=== PATIENT | female | born 1955 | race Caucasian/White ===

== ENCOUNTER 2017-09-18 19:30 | Emergency (ER) | payer OTHER ==
[~2017-09-18] VITALS: Ht 144.8 cm; Wt 80.9 kg
[~2017-09-18 19:30] MED LIST: ALLO100T21 PO; ALPRAZOLAM PO; ASPI81CT95 PO; AZIT250T3 PO; BECL0.089 INH; CLON0.1T79; DILT60TA94; FLONAS NS; FOLI1TAB19; LACO100T PO; LEVO0.0512 PO; OMEP20EC6; ORE25 PO; PILO5TAB PO; PRED20TA5 PO; PREDNISONE PO; PRIM50TA13 PO; SULF500T6 PO; TEMA30CA23 PO
[2017-09-18 19:38] VITALS: BP 153/73
--- NOTE | 2017-09-18 19:46 | NUR ---
PT. AMBULATES TO ER BED 8
[2017-09-18] MEDS ORDERED: NALOXONE 0.4 MG/ML VIAL ONE (20:30)
--- NOTE | 2017-09-18 20:32 | NUR ---
61Y/F PT. PRESENTS TO ED WITH C/O COUGH WITH LT. NECK PAIN X 1 DAY. PT. HX. HTN, ATHRITIS, OSTEOMYELITIS. AAO X4, AMBULATORY WITH MIKE. RESPIRATIONS ROOM AIR, EVEN AND UNALBORED. C/O COUGH, BL CLEAR. SKIN WARM AND DRY. VSS, C/O PAIN 08/16. VSS, ER MADE AWARE OF PT. STATUS.
[2017-09-18] MEDS ORDERED: ALBUTEROL 0.083% 2.5 MG/3 ML NEBU INH ONE (22:20)
[2017-09-18] MEDS ORDERED: methylPREDNISolone SS 125 MG/2 ML VIAL IVP ONE (22:20)
[2017-09-18] MEDS ORDERED: LORazepam 2 MG/ML VIAL IVP ONE (22:20)
[2017-09-18] MEDS ORDERED: MORPHINE SULFATE 4 MG/ML SYR IVP ONE (22:20)
--- NOTE | 2017-09-18 22:48 | NUR ---
GAVE PATIENT 10MG ALBUTEROL
--- NOTE | 2017-09-18 23:44 | NUR ---
Patient appears to be resting comfortably in bed. Vital Signs within normal limits. Respirations even and unlabored.
--- NOTE | 2017-09-19 | NUR ---
Patient appears to be resting comfortably in bed. Vital Signs within normal limits. Respirations even and unlabored.
--- NOTE | 2017-09-19 01:15 | NUR ---
Patient discharged with v/s stable. Written and verbal after care instructions given and explained. Patient alert, oriented and verbalized understanding of instructions. Ambulatory with steady gait. All questions addressed prior to discharge. ID band removed. Patient advised to follow up with PMD. Rx of ATIVAN 1 MG given. Patient educated on indication of medication including possible reaction and side effects. Opportunity to ask questions provided and answered. Addendum: 09/19/17 at 0128 by [facility] NORCO 10/325 MG, PREDNISONE 50 MG, AZITHROMYCIN 250 MG PRESCRIBTION GIVEN
[2017-09-19 01:20] VITALS: BP 120/67
== END 2017-09-19 01:15 | disposition home or self-care (01) ==
LOC: MED 19:30
DX: M54.2 Cervicalgia (principal); J44.1 Chronic obstructive pulmonary disease with (acute) exacerbation; M62.838 Other muscle spasm; J45.909 Unspecified asthma, uncomplicated; I10 Essential (primary) hypertension; E03.9 Hypothyroidism, unspecified; M06.9 Rheumatoid arthritis, unspecified; Z88.1 Allergy status to other antibiotic agents; Z88.8 Allergy status to other drugs, medicaments and biological substances; Z79.899 Other long term (current) drug therapy; Z79.82 Long term (current) use of aspirin
CPT/HCPCS: 71010; 81002; 81025; 94640; 96374; 96375; 99284; J2060; J2270; J2930; J7613; Q0092; J2310

== ENCOUNTER 2018-01-20 23:33 | Emergency (ER) | payer OTHER ==
[~2018-01-20] VITALS: Ht 144.8 cm; Wt 75.7 kg
[2018-01-20 23:35] VITALS: BP 137/81
--- NOTE | 2018-01-20 23:47 | NUR ---
PT AMBULATED TO CHAIR A
--- NOTE | 2018-01-20 23:50 | NUR ---
PATIENT IS A 62 Y/O FEMALE WHO PRESENTS TO THE ED C/O MED REFILL. PT STATES, "MY BODY HURTS AND I RAN OUT OF MY MEDICATION FOR SJOGRENS." PT REPORTS 10/10 ACHING BODY PAIN THAT DOES NOT RADIATE, REPORTS GOUT FLARE UP. PT DENIES CP, SOB, REPORTS NAUSEA DENIES VOMITING/DIARRHEA. PT AAOX4, RR EVEN/UNLABORED. PT REPOSITIONED FOR COMFORT, PT SITTING IN CHAIR. ER MD DR. BOND NOTIFIED. WILL CONTINUE TO MONITOR. Addendum: 01/21/18 at 0003 by MEDDCV PATIENT IS A 62 Y/O FEMALE WHO PRESENTS TO THE ED C/O MED REFILL. PT STATES, "MY BODY HURTS AND I RAN OUT OF MY MEDICATION FOR SJOGRENS." PT REPORTS 10/10 ACHING BODY PAIN THAT DOES NOT RADIATE, REPORTS GOUT FLARE UP. NON-PRODUCTIVE COUGH NOTED. PT DENIES CP, SOB, REPORTS NAUSEA DENIES VOMITING/DIARRHEA. PT AAOX4, RR EVEN/UNLABORED. PT REPOSITIONED FOR COMFORT, PT SITTING IN CHAIR. ER MD DR. BOND NOTIFIED. WILL CONTINUE TO MONITOR.
--- NOTE | 2018-01-21 00:03 | NUR ---
Dr. Welch evaluating patient.
[2018-01-21 00:24] VITALS: BP 140/83
--- NOTE | 2018-01-21 00:24 | NUR ---
Patient discharged with v/s stable. Written and verbal after care instructions given and explained. Patient alert, oriented and verbalized understanding of instructions. Ambulatory with steady gait. All questions addressed prior to discharge. ID band removed. Patient advised to follow up with PMD. Rx of AZITHROMYCIN 250MG AND CEVIMELINE 30MG given. Patient educated on indication of medication including possible reaction and side effects. Opportunity to ask questions provided and answered.
== END 2018-01-21 00:24 | disposition home or self-care (01) ==
LOC: MED 23:33
DX: Z76.0 Encounter for issue of repeat prescription (principal); J06.9 Acute upper respiratory infection, unspecified; J44.9 Chronic obstructive pulmonary disease, unspecified; I10 Essential (primary) hypertension; E03.9 Hypothyroidism, unspecified; Z79.899 Other long term (current) drug therapy; Z79.82 Long term (current) use of aspirin; Z88.1 Allergy status to other antibiotic agents; Z88.8 Allergy status to other drugs, medicaments and biological substances
CPT/HCPCS: 99283

== ENCOUNTER 2018-02-08 23:13 | Inpatient (IN) | payer OTHER ==
[~2018-02-08] VITALS: Ht 142.2 cm; Wt 75.7 kg
[2018-02-08 23:20] VITALS: BP 113/69
--- NOTE | 2018-02-08 23:26 | NUR ---
Pt presents to ED after fall x3 days ago. Pt's ocular care technician states she likely threw up in her sleep last night on 02/07/18. Pt c/o severe 10/10 bilateral knee pain. Pt Has 2cm crescent laceration with green drainage ro left knee. Left foot is red, warm, and has 2-3+ Pitting edema. No edema present to right foot. Pt A&Ox4. Has difficulty ambulating. VSS. ER MD aware. Continue to monitor.
[2018-02-08] MEDS ORDERED: MORPHINE SULFATE 4 MG/ML SYR IVP ONE (23:55)
[2018-02-09 00:39] LABS: BASOPHILS % (AUTO) 0.8 % (0.0-2.0); EOSINOPHILS # (AUTO) 0.1 K/uL (0-0.4); EOSINOPHILS % (AUTO) 1.2 % (0.0-4.0); HEMATOCRIT 28.6 % (36-48); HEMOGLOBIN 9.2 g/dL (12.0-16.0); LYMPHOCYTES # (AUTO) 1.6 K/uL (2.5-16.5); LYMPHOCYTES % (AUTO) 29.2 % (20.5-51.1); MEAN CORPUSCULAR HEMOGLOBIN 25 pg (27-31); MEAN CORPUSCULAR HGB CONC 32 g/dL (33-37); MEAN CORPUSCULAR VOLUME 75.9 fL (80-94); MONOCYTES # (AUTO) 0.6 K/uL (0.8-1.0); NEUTROPHILS # (AUTO) 3.2 K/uL (1.8-7.7); NEUTROPHILS % (AUTO) 58.8 % (42.2-75.2); PLATELET COUNT (AUTO) 295 K/uL (140-450); RED BLOOD CELL COUNT(AUTO) 3.76 MIL/uL (4.20-5.40); RED CELL DISTRIBUTION WIDTH 15.7 % (11.6-13.7); WHITE BLOOD COUNT (AUTO) 5.5 K/uL (4.8-10.8)
--- NOTE | 2018-02-09 00:45 | NUR ---
PT AT CT AT THIS TIME, MORPHINE 4MG UNAVAILABLE AT [facility], TOWER TRUCK DRIVER CONTACTED BUT UNAVAILABLE AT THIS TIME. OVERRIDE MED MORPHINE 5MG, WILL ADMINISTER MORPHINE 4MG IVP ORDERED WHEN PT IS BACK FROM CT.
[2018-02-09] MEDS ORDERED: MORPHINE SULFATE 5 MG/ML VIAL ONE (00:51)
[2018-02-09 00:56] LABS: ALBUMIN 3.1 g/dL (3.4-5.0); ANION GAP 7.9 (8-16); CARBON DIOXIDE 33.6 mmol/L (21-32); CREATININE 1.1 mg/dL (0.6-1.3); TOTAL BILIRUBIN 0.3 mg/dL (0.0-1.0)
[2018-02-09 01:03] LABS: CREATINE KINASE MB 0.9 ng/mL (0-3.6)
[2018-02-09 01:04] LABS: POTASSIUM 2.5 mmol/L (3.5-5.1)
--- NOTE | 2018-02-09 01:20 | NUR ---
IV 22 GA RT A/C DONE. IVP MEDS GIVEN-NADR AT THIS TIME
--- NOTE | 2018-02-09 02:15 | NUR ---
PT RESTING IN BED, PT REPORTS RELIEF OF PAIN AT THIS TIME AFTER MORPHINE IVP. RR EVEN AND UNLABORED. REMINDED DR JAY ABOUT ABNORMAL LABS K 2.5, D-DIMER 1080 AT THIS TIME, MD AWARE, ORDERS PENDING.
[2018-02-09] MEDS ORDERED: POTASSIUM CHLORIDE 10 MEQ TABER PO ONE (02:20)
[2018-02-09] MEDS ORDERED: ACETAMINOPHEN 325 MG TAB PO PRN (02:30)
[2018-02-09] MEDS ORDERED: ONDANSETRON 4 MG/2 ML VIAL IVP PRN (02:30)
[2018-02-09] MEDS ORDERED: HYDROcodone/APAP 5/325 MG 1 TAB TAB PO PRN ×3 (02:30→03:00)
[2018-02-09] MEDS: NACL 0.9% 1,000 ML IV SCH ×3 (02:55→22:27)
--- NOTE | 2018-02-09 03:00 | NUR ---
Patient will be admitted to care of [facility]. Admited to TELE. Will go to room 111B. Belongings list completed. Report to BALTAZAR LICONA AT BEDSIDE.
--- NOTE | 2018-02-09 03:05 | NUR ---
RECEIVED REPORT FROM CYBER DEFENSE INCIDENT RESPONDER MABEL, PT IS A/OX4, ON ROOM AIR. PT HAS 20G IV TO LEFT AC. PT AMBULATES WITH CANE, PT IS S/P FALL 3 DAYS AGO AND HAS A HEALING LACERATION TO LEFT KNEE. UPDATED BOARD. DISCUSSED PLAN OF CARE WITH PT, PT VERBALIZED UNDERSTANDING. OBTAINED MRSA SWAB AND SENT TO LAB. VITAL SIGNS WITHIN NORMAL LIMITS. PT IN STABLE CONDITION, NO SIGNS OF DISTRESS NOTED. BED IN LOWEST POSITION, CALL LIGHT WITHIN REACH. WILL CONTINUE TO MONITOR.
[2018-02-09 04:09] VITALS: BP 117/69
--- NOTE | 2018-02-09 05:07 | NUR ---
RECEIVED PHARMACY CALL TO VERIFY MEDICATIONS. PHARMACIST ASKED ME TO CALL DR AND VERIFY DOSES FOR LEVOTHYROXINE AND ASPIRIN, AND TO FIND OUT IF DR WANTS TO D/C ACETAMINOPHEN AND NORCO BECAUSE PT IS ALLERGIC, OR IF SHE WANTS TO ADD BENADRYL. PAGED DR. HERNANDEZ (SURVEY INTERVIEWER).
--- NOTE | 2018-02-09 07:02 | NUR ---
DR HERNANDEZ HAS NOT CALLED BACK. TRIED PAGING AGAIN AND GOT DISCONNECTED. WILL ENDORSE.
--- NOTE | 2018-02-09 07:40 | NUR ---
RECEIVED REPORT FROM MASTER ELECTRICIAN NURSE. PT IS RESTING IN BED, SEMI FOWLERS POSITION, AAOX4, AMBULATES WITH ASSIST, PT HAS A LEFT KNEE SKIN TEAR, IV IS ON THE RIGHT AC, PATENT, INTACT, FLUSHING WELL, NO S/S OF RESPIRATORY DISTRESS OR DISCOMFORT NOTED, SAFETY/FALL PRECAUTIONS ARE IN PLACE, DISCUSSED PLAN OF CARE WITH PT, PT VERBALIZED UNDERSTANDING, CALL LIGHT IS WITHIN REACH, WILL CONTINUE TO MONITOR.
--- NOTE | 2018-02-09 07:43 | NUR ---
ENDORSED PT TO DAY SHIFT RN FOR CONTINUITY OF CARE. PT IN STABLE CONDITION.
[2018-02-09 08:00] VITALS: BP 171/61
[2018-02-09] MEDS ORDERED: LEVOTHYROXINE 0.088 MG TAB PO SCH (08:25)
[2018-02-09] MEDS: DILTIAZEM 60 MG TAB PO SCH (08:55)
[2018-02-09] MEDS: FOLIC ACID 1 MG TAB PO SCH (08:56)
[2018-02-09] MEDS: ALLOPURINOL 100 MG TAB PO SCH (08:56)
[2018-02-09] MEDS: FLUTICASONE NASAL 50 MCG/ACTUATION 16 GM BTL NS SCH (08:57)
[2018-02-09] MEDS ORDERED: ASPIRIN 325 MG TAB PO SCH (09:00)
[2018-02-09] MEDS ORDERED: ASPIRIN 81 MG TAB.CHEW PO SCH (09:00)
[2018-02-09] MEDS ORDERED: FLUTICASONE NASAL 50 MCG/ACTUATION 16 GM BTL NS SCH (09:00)
[2018-02-09] MEDS ORDERED: sulfaSALAzine 500 MG TAB PO SCH (09:00)
[2018-02-09] MEDS ORDERED: PILOCARPINE HYDROCHLORIDE PO SCH ×2 (09:00)
[2018-02-09] MEDS ORDERED: NON-FORMULARY ITEM (Lacosamide (Vimpat) 100 MG) PO SCH ×2 (09:00)
[2018-02-09] MEDS ORDERED: LEVOTHYROXINE 0.05 MG TAB PO SCH (09:00)
[2018-02-09] MEDS: ENOXAPARIN 30 MG/0.3 ML SYR SUBQ SCH (09:00)
--- NOTE | 2018-02-09 09:00 | NUR ---
PT IS AWAKE LYING ON THE BED,MEDICATIONS GIVEN, MADE COMFORTABLE ON THE BED. CALL LIGHT WITHIN REACH. WILL CONTINUE TO MONITOR.
--- NOTE | 2018-02-09 09:50 | NUR ---
WOUND CARE EVALUATION NOTE: REASON FOR EVALUATION: LEFT KNEE WOUND COMPLETE SKIN ASSESSMENT DONE ON THIS 62Y/O FEMALE PATIENT FROM HOME TO [facility], WITH INITIAL DIAGNOSIS OF FALL. PAST MEDICAL HISTORY HYPOTHYROIDISM. ALL ABOVE INFORMATION WAS OBTAINED FROM THE ADMISSION H&P AND PT. PT. IS AAX3. LABS ARE WBC 5.5, H/H 9.2/28.6 GLUCOSE 98 AND ALBUMIN 3.1. SKIN WARM TO TOUCH WNL, SKIN TURGOR GOOD. CAPILLARY REFILLED <3 SEC. TOENAILS ARE SHORT AND THICKENED, NO HAIR GROWTH, BILATERAL DORSAL PEDAL PULSES PRESENT. PT. ABLE TO AMBULATE TO BR. INITIAL PLAN OF CARE DISCUSSED WITH PRIMARY RN AND PT., PT. ABLE TO VERBALIZE UNDERSTANDING. INTEGUMENTARY: BILATERAL LOWER EXTREMITIES -DRYNESS LEFT KNEE SMALL LACERATION 1.5X1.2 WOUND BED LIGHT BROWN, SURROUNDING REDNESS MEASURE 3 CM IN DIAMETER, PERIWOUND SKIN INTACT. LEFT AND RIGHT HEELS- THIN LAYER OF CALLUS RECOMMENDATIONS: -CLEANSE LEFT KNEE SMALL LACERATION WITH NS. PAT DRY, APPLY SILVASORB GEL , COVER WITH DRY DRESSING AND SECURE WITH TAPE QD AND PRN IF SOILING -TURN AND REPOSITION PATIENT Q 2H -ASSESS AND MONITOR SKIN CONDITION DURING POSITION CHANGE -OFFLOAD BILATERAL HEELS BY PLACING PILLOWS UNDER CALVES AT ALL TIMES, UNLESS OTHERWISE CONTRAINDICATED -PRESSURE REDISTRIBUTION SURFACE THERAPY -KEEP SKIN CLEAN AND DRY AT ALL TIMES. MAY APPLY BODY LOTION TO DRYNESS AREA. RECOMMENDATIONS DISCUSSED WITH PRIMARY RN WILL FOLLOW UP PATIENT PRN. PLEASE CONTACT WOUND CARE NURSE FOR ANY QUESTIONS AND CHANGES IN SKIN CONDITION.
[2018-02-09] MEDS: MORPHINE SULFATE 4 MG/ML SYR IVP PRN (10:24)
--- NOTE | 2018-02-09 10:24 | NUR ---
PT IS AWAKE LYING ON THE BED, VERBALIZED PAIN RATED AT 8. MEDICATED WITH 2MG MORPHINE IV PUSH, PT TOLERATED IT. NO UNTOWARD SIGNS NOTED AT THIS TIME. CALL LIGHT WITHIN REACH. WILL CONTINUE TO MONITOR.
[2018-02-09] MEDS: predniSONE 20 MG TAB PO SCH (10:28)
--- NOTE | 2018-02-09 10:30 | NUR ---
PATIENT HAS BEEN SCREENED AND CATEGORIZED HIGH NUTRITION RISK. PATIENT WILL BE SEEN WITHIN 1-2 DAYS OF ADMISSION. 02/09/18 - 02/10/[address]
[2018-02-09 12:00] VITALS: BP 165/67
--- NOTE | 2018-02-09 12:30 | NUR ---
PT IS AWAKE, ASSISTED TO THE BATHROOM AND THEN ASSISTED TO THE BED. PT DENIES PAIN AT THIS TIME. CALL LIGHT WITHIN REACH. WILL CONTINUE TO MONITOR.
[2018-02-09] MEDS: NACL 0.9% IRR 250 ML BOTTLE IR SCH (12:40)
--- NOTE | 2018-02-09 13:55 | NUR ---
CM NOTE CLINICAL INFORMATION FAXED TO [facility] / FAX# [phone], ATTN: KATHLEEN #[phone]
--- NOTE | 2018-02-09 14:35 | NUR ---
PT IS AWAKE AND ASSISTED TO THE BATHROOM TO PEE. ASSISTED BACK TO BED AND MADE COMFORTABLE. NO SIGNS OF DISTRESS NOTED AT THIS TIME. CALL LIGHT WITHIN REACH. WILL CONTINUE TO MONITOR.
--- NOTE | 2018-02-09 15:42 | NUR ---
02/09/18 RD INITIAL ASSESSMENT COMPLETED PLEASE REFER TO NUTRITION ASSESSMENT UNDER CARE ACTIVITY FOR ESTIMATED NUTRITIONAL NEEDS. 1. CONTINUE CARIAC DIET TOLERATED 2. PROVIDE CARDIAC DIET EDUCATION TO PT 3. RD TO FOLLOW-UP 3-5 DAYS, MODERATE RISK VANESA MATA RD
[2018-02-09 16:00] VITALS: BP 185/84
--- NOTE | 2018-02-09 16:30 | NUR ---
ASSISTED PT TO THE BATHROOM TO HAVE A BOWEL MOVEMENT AND ASSISTED BACK TO BED AND MADE COMFORTABLE. CALL LIGHT WITHIN REACH. NO SIGNS OF DISTRESS AT THIS TIME. WILL CONTINUE TO MONITOR.
--- NOTE | 2018-02-09 17:02 | NUR ---
CALLED DR. CONDE, LET HIM KNOW THAT THE PATIENT'S CURRENT BLOOD PRESSURE WAS 185/84, HR 57. PER DR. CONDE GIVE PT HYDRALAZINE 25MG PO, QID, PRN FOR BP GREATER THAN 165.
[2018-02-09] MEDS: hydrALAZINE 25 MG TAB PO PRN (17:10)
--- NOTE | 2018-02-09 18:00 | NUR ---
KATHLEEN FROM [facility] CALLED AND SHE SAID THEY WILL ACCEPT PATIENT AND HER RM #[id number].
--- NOTE | 2018-02-09 19:25 | NUR ---
RECEIVED PATIENT IN BED. CALL LIGHTS WITHIN REACH. BED IN LOW POSITION. EXPLAINED ABOUT THE PLAN OF CARE. WILL CONTINUE TO MONITOR.
--- NOTE | 2018-02-09 19:25 | NUR ---
ENDORSED PT TO FITTINGS FINISHER NURSE, SYED, FOR CONTINUITY OF CARE. PT IS STABLE AT THIS TIME.
[2018-02-09 20:00] VITALS: BP 141/75
[2018-02-09] MEDS: PRIMIDONE 50 MG TAB PO SCH (20:30)
--- NOTE | 2018-02-09 21:30 | NUR ---
SEEN PATIENT AWAKE LYING IN BED IN COMFORTABLE POSITION. PATIENT ASK FOR ANOTHER GOWN AND WARM BLANKET. ALL NEEDS ATTENDED. CALL LIGHT WITHIN REACH. BED IN LOW POSITION. WILL CONTINUE TO MONITOR.
[2018-02-10] VITALS: BP 166/88
[2018-02-10] MEDS: hydrALAZINE 25 MG TAB PO PRN ×3 (00:41→16:38)
--- NOTE | 2018-02-10 02:05 | NUR ---
DR CONDE CALLED. UPDATED HIM ON PATIENT'S CONDITION Addendum: 02/11/18 at 0205 by Joana Miner RN WRONG DATE
--- NOTE | 2018-02-10 02:30 | NUR ---
ASSIST PATIENT TO THE BATHROOM. PATIENT STATES SHE DID BM WITH SMALL AMOUNT. ASSIST PATIENT BACK TO BED AND COVERED WITH WARM BLANKET.
[2018-02-10] MEDS: MORPHINE SULFATE 4 MG/ML SYR IVP PRN ×3 (02:52→21:51)
[2018-02-10 04:00] VITALS: BP 178/69
--- NOTE | 2018-02-10 04:15 | NUR ---
SEEN PATIENT AWAKE IN BED. CALL LIGHT WITHIN REACH. LOW BED POSITION. WILL CONTINUE TO MONITOR.
[2018-02-10] MEDS: LEVOTHYROXINE 0.088 MG TAB PO SCH (06:30)
--- NOTE | 2018-02-10 06:35 | NUR ---
SEEN PATIENT AWAKE ASSISTED PATIENT TO BATHROOM AND BACK TO BED. FALL PRECAUTION IMPLEMENTED. WILL CONTINUE TO MONITOR.
[2018-02-10 06:50] LABS: BASOPHILS % (AUTO) 0.3 % (0.0-2.0); EOSINOPHILS % (AUTO) 0.5 % (0.0-4.0); HEMATOCRIT 26.9 % (36-48); HEMOGLOBIN 8.8 g/dL (12.0-16.0); LYMPHOCYTES # (AUTO) 1.6 K/uL (2.5-16.5); MEAN CORPUSCULAR HEMOGLOBIN 25 pg (27-31); MEAN CORPUSCULAR HGB CONC 33 g/dL (33-37); MEAN CORPUSCULAR VOLUME 76.4 fL (80-94); MONOCYTES # (AUTO) 0.4 K/uL (0.8-1.0); MONOCYTES % (AUTO) 9.4 % (1.7-9.3); NEUTROPHILS # (AUTO) 2.3 K/uL (1.8-7.7); NEUTROPHILS % (AUTO) 52.8 % (42.2-75.2); PLATELET COUNT (AUTO) 302 K/uL (140-450); RED BLOOD CELL COUNT(AUTO) 3.51 MIL/uL (4.20-5.40); RED CELL DISTRIBUTION WIDTH 15.7 % (11.6-13.7); WHITE BLOOD COUNT (AUTO) 4.3 K/uL (4.8-10.8)
--- NOTE | 2018-02-10 07:05 | NUR ---
RECEIVED PATIENT REPORT AT BEDSIDE. PATIENT AWAKE, ALERT AND ORIENTED. NO S/S OF DISTRESS. PATIENT ON ROOM AIR. IV LINE NOTED TO THE RIGHT AC WITH IVF INFUSING WELL. PATIENT ON TELE MONITORING. BED LOWERED WITH CALL LIGHT WITHIN REACH. WILL CONTINUE TO MONITOR
--- NOTE | 2018-02-10 07:20 | NUR ---
ENDORSED PATIENT TO AM SHIFT NURSE FOR CONTINUITY OF CARE. PATIENT IN STABLE CONDITION.
[2018-02-10 08:00] VITALS: BP 165/69
[2018-02-10] MEDS: ALLOPURINOL 100 MG TAB PO SCH (09:01)
[2018-02-10] MEDS: predniSONE 20 MG TAB PO SCH (09:01)
[2018-02-10] MEDS: ASPIRIN 325 MG TAB PO SCH (09:01)
[2018-02-10] MEDS: FOLIC ACID 1 MG TAB PO SCH (09:01)
[2018-02-10] MEDS: FLUTICASONE NASAL 50 MCG/ACTUATION 16 GM BTL NS SCH (09:02)
[2018-02-10] MEDS: DILTIAZEM 60 MG TAB PO SCH (09:02)
[2018-02-10] MEDS: ENOXAPARIN 30 MG/0.3 ML SYR SUBQ SCH (09:08)
[2018-02-10 12:00] VITALS: BP 155/61
--- NOTE | 2018-02-10 12:53 | NUR ---
PHYSICAL THERAPY CO-SIGN The Physical Therapy Progress Notes documented by Foreign Food Cook Specialty have been reviewed. I CONCUR W/SUPERVISOR CORRESPONDENCE SECTION NOTE; CONT PER TX PLAN Reviewed/Co-Signed by: Jessica Valera, PT Documentation Done by: TAYLER COVINGTON PTA Addendum: 02/10/18 at 1254 by Jessica Valera PT Amended: Links added.
--- NOTE | 2018-02-10 12:55 | NUR ---
MADE DR CONDE AWARE OF PATIENT'S POTASSIUM LEVEL OF 2.5 DRAWN ON 02/09 AND MG LEVEL OF 1.7. POTASSIUM LEVEL FOR TODAY STILL PENDING
[2018-02-10] MEDS: NACL 0.9% IRR 250 ML BOTTLE IR SCH (13:00)
[2018-02-10 13:03] LABS: CREATININE 0.8 mg/dL (0.6-1.3)
[2018-02-10] MEDS ORDERED: POTASSIUM CHLORIDE 10 MEQ TABER PO SCH ×2 (13:05→13:29)
[2018-02-10] MEDS ORDERED: MAGNESIUM OXIDE 400 MG TAB PO SCH (13:29)
[2018-02-10] MEDS ORDERED: MAG SULF 2000 MG/WATER PREMIX 50 ML IV SCH (13:30)
--- NOTE | 2018-02-10 13:35 | NUR ---
Patient requested to speak to these typewriter aligner to discuss possible placement to (SNF) Skilled Nurse Facility. Patient stated that she has thought about going to a facility Versus going back home with family and she also discuss issue with family and has decided that she will be more comfortable going back home after her discharge from [facility]. Therefore ; she has talk to MD Delong and she declined the (SNF) and will be going home with home health. I thank her for the information and I agreed to inform case manger of patient's change of mind.
[2018-02-10] MEDS: NACL 0.9% 1,000 ML IV SCH ×2 (13:37→18:27)
[2018-02-10] MEDS: CIPROFLOXACIN 0.3% OP 2.5 ML BTL BOTH EYES SCH ×2 (14:03→21:51)
[2018-02-10] MEDS ORDERED: POTASSIUM CHLORIDE 20 MEQ, LIDOCAINE 1% 25 MG in NACL 0.9% 250 ML IV SCH (15:00)
[2018-02-10] MEDS ORDERED: POTASSIUM CHLORIDE 40 MEQ, LIDOCAINE 1% 25 MG in NACL 0.9% 250 ML IV SCH (15:00)
--- NOTE | 2018-02-10 15:26 | NUR ---
RECEIVED CALL EARLIER FROM KATHLEEN AT [facility]. THEY HAVE ACCEPTED THE PATIENT SHE CAN GO TO ROOM `19 B WHEN DISCHARGED. SPOKE WITH SCARLET, SUPERVISOR CELL EFFICIENCY. SHE SAID THE PATIENT CHANGED HER MIND ABOUT A SNF. SHE SAID SHE SPOKE WITH THE DOCTOR AND SHE WILL GO CHAY WITH HOME PT. I CALLED KATHLEEN FROM [facility] AND INFORMED HER THAT PATIENT WILL NOT BE COMING TO HER, BUT WILL GO HOME. I FAXED REVIEW AND ORDER TO MIMA FROM [facility] [phone] PHONE [phone]. SHE SAID I CAN USE [facility] FOR HOME PT. I CALL RAFY FROM [facility] AND FAXED INFORMATION TO HER FOR HOME PT. PHONE [phone]
[2018-02-10 16:00] VITALS: BP 181/68
--- NOTE | 2018-02-10 16:45 | NUR ---
ASSISTED PATIENT TO THE BATHROOM. PATIENT VOIDED
--- NOTE | 2018-02-10 18:00 | NUR ---
RECHECKED BP 192/85. MADE DR HERNANDEZ AWARE. ORDERS NIFEDIPINE 60MG X1 AND DISCONTINUE IV FLUIDS. PER DR HERNANDEZ PATIENT CAN GO IF SYSTOLIC BP IS 160 OR BELOW.
[2018-02-10] MEDS ORDERED: NIFEdipine 60 MG TABER PO SCH (18:30)
--- NOTE | 2018-02-10 19:30 | NUR ---
PATIENT REPORT RECEIVED FROM MORNING NURSE AT BEDSIDE. PATIENT IS AWAKE, ALERT AND ORIENTED. NO SIGNS AND SYMPTOMS OF DISTRESS NOTED. NO COMPLAINTS OF PAIN AT THIS TIME. PATIENTS FAMILY AT BEDSIDE. PATIENT ON ROOM AIR. PLAN OF CARE DISCUSSED WITH PATIENT. PATIENT VERBALIZED UNDERSTANDING. WILL CONTINUE TO MONITOR.
[2018-02-10] MEDS ORDERED: ACET-2869 PO (19:53)
[2018-02-10] MEDS ORDERED: CILOS OP (19:56)
[2018-02-10 20:00] VITALS: BP 180/76
--- NOTE | 2018-02-10 20:30 | NUR ---
PATIENT'S BLOOD PRESSURE STILL ELEVATED AT 180/76. DR HERNANDEZ NOTIFIED. PER DR HERNANDEZ, DISCHARGE ORDERS HELD FOR TONIGHT. ORDERS FOR PATIENT'S ELEVATED BLOOD PRESSURE RECEIVED.
[2018-02-10] MEDS ORDERED: LABETALOL 100 MG/20 ML VIAL IVP ONE (21:00)
--- NOTE | 2018-02-10 21:00 | NUR ---
DR CONDE CALLED. UPDATED HIM ON PATIENT'S CONDITION
[2018-02-10] MEDS: PRIMIDONE 50 MG TAB PO SCH (21:51)
[2018-02-10] MEDS ORDERED: LABETALOL 100 MG/20 ML VIAL ONE (21:58)
--- NOTE | 2018-02-10 22:00 | NUR ---
PATIENT REFUSES IV FLUID THERAPY AT THIS TIME. PATIENT STATES SHE DRINKS ENOUGH WATER
[2018-02-11] VITALS: BP 161/77
--- NOTE | 2018-02-11 03:00 | NUR ---
CHECKED ON PATIENT. PATIENT IS ASLEEP. NO SIGNS AND SYMPTOMS OF DISTRESS NOTED. WILL CONTINUE TO MONITOR.
[2018-02-11 04:00] VITALS: BP 135/55
[2018-02-11] MEDS: NACL 0.9% 1,000 ML IV SCH (04:00)
[2018-02-11] MEDS: LEVOTHYROXINE 0.088 MG TAB PO SCH (05:37)
--- NOTE | 2018-02-11 06:24 | NUR ---
PATIENT COMPLAINS OF NAUSEA BUT REFUSES MEDS. SAID SHE JUST WANTS TO LET IT OUT.
--- NOTE | 2018-02-11 07:20 | NUR ---
PATIENT REPORT GIVEN TO MORNING NURSE AT BEDSIDE FOR CONTINUITY OF CARE. PATIENT IS IN STABLE CONDITION.
--- NOTE | 2018-02-11 07:22 | NUR ---
RECEIVED BEDSIDE REPORT FROM HOTEL OR MOTEL MANAGER NURSE. PATIENT IS AWAKE, ALERT AND ORIENTEDX4. NO SIGNS OF DISTRESS ON ROOM AIR. PATIENT HAS NO COMPLAINTS AT THIS TIME. IV ON R AC 22 G SALINE LOCK. IV IS CLEAN,DRY, AND INTACT. ALLERGY BAND IN PLACE. TELE MONITOR IN PLACE. CARDIAC DIET ORDERED. FALL PRECAUTIONS IN PLACE. CANE AT BEDSIDE. SKIN HAS L KNEE SKIN TEAR. BED IN LOW POSITION. CALL LIGHT WITHIN REACH. WILL CONTINUE TO MONITOR PATIENT.
[2018-02-11 08:00] VITALS: BP 126/64
[2018-02-11] MEDS ORDERED: DILTIAZEM 60 MG TAB PO SCH (09:00)
[2018-02-11] MEDS ORDERED: ALUMINUM HYD/MAG/SIMETHICONE 30 ML UDC PO PRN (09:40)
[2018-02-11] MEDS: ASPIRIN 325 MG TAB PO SCH (10:46)
[2018-02-11] MEDS: predniSONE 20 MG TAB PO SCH (10:46)
[2018-02-11] MEDS: FOLIC ACID 1 MG TAB PO SCH (10:46)
[2018-02-11] MEDS: ALLOPURINOL 100 MG TAB PO SCH (10:46)
[2018-02-11] MEDS: FLUTICASONE NASAL 50 MCG/ACTUATION 16 GM BTL NS SCH (10:47)
[2018-02-11] MEDS: CIPROFLOXACIN 0.3% OP 2.5 ML BTL BOTH EYES SCH (10:48)
[2018-02-11] MEDS: ENOXAPARIN 30 MG/0.3 ML SYR SUBQ SCH (10:48)
--- NOTE | 2018-02-11 10:55 | NUR ---
ADMINISTERED MORNING MEDS. PATIENT TOLERATED MEDS WELL. NO COMPLAINTS AT THIS TIME. WILL CONTINUE TO MONITOR PATIENT. CALL LIGHT WITHIN REACH.
--- NOTE | 2018-02-11 11:30 | NUR ---
DC INSTRUCTIONS GIVEN. PT VERBALIZED UNDERSTANDING. REMOVED IV, CANNULA INTACT. NO BLEEDING NOTED. REMOVED ID BANDS AND TELE MONITOR. WILL GET DRESSED AND WILL GATHER HER PERSONAL BELONGINGS. WILL LET US KNOW WHEN HER RIDE GETS HERE. WILL CONTINUE TO MONITOR PT.
--- NOTE | 2018-02-11 12:35 | NUR ---
PT ALL READY TO GO BUT NO RIDE OF YET. LUNCH TRAY IS GIVEN. TOLD HER TO EAT AND LET US KNOW WHEN HER RIDE GETS HERE. PT AWARE. WILL CONTINUE TO MONITOR PT.
--- NOTE | 2018-02-11 13:00 | NUR ---
FAMILY HERE TO LICENSED HOME INSPECTOR PT. PT REFUSED PHOTO OF KNEE SCAB. WILL GET WHEELCHAIR.
--- NOTE | 2018-02-11 13:10 | NUR ---
PT WHEELED OUT TO THE CAR, ACCOMPANIED BY RN AND DAUGHTER AND GRANDDAUGHTER. PT HAS PERSONAL BELONGINGS WITH PT. PT IN STABLE CONDITION.
--- NOTE | 2018-02-11 13:28 | NUR ---
PHYSICAL THERAPY CO-SIGN The Physical Therapy Progress Notes documented by Investigator have been reviewed. I CONCUR W/LOG HAUL OPERATOR NOTE; Pt IS PROGRESSING TOWARDS GOALS Reviewed/Co-Signed by: Jessica Valera, PT Documentation Done by: LOVE HOGAN PTA Addendum: 02/11/18 at 1329 by Jessica Valera PT Amended: Links added.
== END 2018-02-11 13:10 | disposition home health service (06) | DRG 422 ==
LOC: MED 23:13 → MTU 02-09 02:35 → UNDOADMIN 02-09 02:35 → MTU 02-09 02:35 → OBSVTOIN 02-09 13:22 → MTU 02-10 12:25
PROVIDERS: ADMIT Hospitalist; ATTEND Hospitalist
DX: E87.1 Hypo-osmolality and hyponatremia (principal); E86.0 Dehydration; F07.81 Postconcussional syndrome; I10 Essential (primary) hypertension; E87.6 Hypokalemia; I25.10 Atherosclerotic heart disease of native coronary artery without angina pectoris; E03.9 Hypothyroidism, unspecified; J44.9 Chronic obstructive pulmonary disease, unspecified; M19.90 Unspecified osteoarthritis, unspecified site; Z90.710 Acquired absence of both cervix and uterus; Z88.6 Allergy status to analgesic agent; Z91.81 History of falling; Z88.1 Allergy status to other antibiotic agents; Z88.5 Allergy status to narcotic agent; Z90.722 Acquired absence of ovaries, bilateral
CPT/HCPCS: 96374; 99285; G0378; 36415; 70450; 71045; 73020; 73560; 73620; 80048; 80053; 82550; 82553; 83735; 83880; 84484; 85025; 85379; 87081; 93005; 97110; 97116; 97140; 97530; J1650; J2001; J2270; J3475; J3480; J3490; J7030; J7512; Q0092

== ENCOUNTER 2018-12-19 11:11 | Emergency (ER) | payer OTHER ==
[~2018-12-19] VITALS: Ht 144.8 cm; Wt 61.5 kg
[~2018-12-19 11:11] MED LIST changes: -ALPRAZOLAM PO; -AZIT250T3 PO; -BECL0.089 INH; +CILOS OP; -CLON0.1T79; +HYDR-5122 PO; +OMEP-113; -OMEP20EC6; -ORE25 PO; -PREDNISONE PO; -TEMA30CA23 PO
[2018-12-19 11:20] VITALS: BP 162/93
--- NOTE | 2018-12-19 11:24 | NUR ---
PT AMBULATES TO BED 4
--- NOTE | 2018-12-19 11:30 | NUR ---
PATIENT PRESENTS TO ED WITH LEFT WRIST PAIN. PT STATES SHE FELL YESTERDAY ON HER SIDE. DENIES N/V/D; SKIN IS PINK/WARM/DRY; AAOX4 WITH EVEN AND STEADY GAIT; LUNGS CLEAR BL; HR EVEN AND REGULAR; PT DENIES ANY FEVER, CP, SOB, OR COUGH AT THIS TIME; PATIENT STATES PAIN OF 10/10 AT THIS TIME; VSS; PATIENT POSITIONED FOR COMFORT; HOB ELEVATED; BEDRAILS UP X2; BED DOWN. ER MD MADE AWARE OF PT STATUS.
[2018-12-19] MEDS ORDERED: KETOROLAC 30 MG/ML VIAL IM ONE (12:30)
--- NOTE | 2018-12-19 12:35 | NUR ---
PT TAKEN TO XRAY VIA WHEELCHAIR
[2018-12-19 14:27] VITALS: BP 138/72
--- NOTE | 2018-12-19 14:28 | NUR ---
Patient discharged with v/s stable. Written and verbal after care instructions given and explained. Patient alert, oriented and verbalized understanding of instructions. Ambulatory with CANE . All questions addressed prior to discharge. ID band removed. Patient advised to follow up with PMD. Rx of NAPROSYN given. Patient educated on indication of medication including possible reaction and side effects. Opportunity to ask questions provided and answered.
== END 2018-12-19 14:28 | disposition home or self-care (01) ==
LOC: MED 11:11
DX: S60.222A Contusion of left hand, initial encounter (principal); M25.532 Pain in left wrist; J44.9 Chronic obstructive pulmonary disease, unspecified; I10 Essential (primary) hypertension; E07.9 Disorder of thyroid, unspecified; Z88.6 Allergy status to analgesic agent; Z88.1 Allergy status to other antibiotic agents; Z88.5 Allergy status to narcotic agent; Z79.82 Long term (current) use of aspirin; Z79.899 Other long term (current) drug therapy; Z79.891 Long term (current) use of opiate analgesic; W01.0XXA Fall on same level from slipping, tripping and stumbling without subsequent striking against object, initial encounter; Y93.89 Activity, other specified; Y92.098 Other place in other non-institutional residence as the place of occurrence of the external cause; Y99.8 Other external cause status
CPT/HCPCS: 29125; 73110; 73130; 96372; 99283; J1885